=== PATIENT | female | born 1990 | race Caucasian/White ===

== ENCOUNTER 2022-05-20 17:28 | Emergency (ER) | payer OTHER, MEDICAID, SELFPAY ==
[2022-05-20 18:01] VITALS: BP 120/73; PULSE 90; RESP 18; TEMP 36.2; O2SAT 98; BMI 34.1
--- NOTE | 2022-05-20 19:17 | ED.ANIMALBIT ---
HPI - Animal Bite General Chief Complaint: Animal Bite Stated Complaint: DOG BITE LEFT ARM Time Seen by Provider: 05/20/22 18:58 Source: patient Mode of arrival: Ambulatory History of Present Illness HPI narrative: 31-year-old female who is here for evaluation of a laceration to her left arm that was caused by a dog bite. This was a friend's dog that is up-to-date on its immunizations. Patient is up-to-date on immunizations. Related Data Home Medications Medication Instructions Recorded Confirmed vitamin-ferrous fumarate 1 cap PO QDAY ##0 01/28/17 65 mg iron-folic acid 1 mg capsule (Mynatal) Allergies Allergy/AdvReac Type Severity Reaction Status Date / Time No Known Drug Allergies Allergy Verified 05/20/22 20:28 Review of Systems Musculoskeletal Musculoskeletal: Reports system reviewed and no additional complaints, except as documented Integumentary/Breasts Skin/Breast: Reports system reviewed and no additional complaints, except as documented Neurologic Neurologic: Reports system reviewed and no additional complaints, except as documented Hematologic/Lymphatic On Anticoagulants: No Patient History Social History Smoking Status: Never smoker Smoking Status: Never smoker Substance Use Type: does not use Exam Initial Vital Signs Initial Vital Signs: Vital Signs Temperature 97.2 F L 05/20/22 18:01 Pulse Rate 90 05/20/22 18:01 Respiratory Rate 18 05/20/22 18:01 Blood Pressure 120/73 05/20/22 18:01 Pulse Oximetry 98 05/20/22 18:01 Oxygen Delivery Method 05/20/22 18:01 Const General: cooperative HENMT Head: normal to inspection Skin Other: 4 cm laceration to the dorsum of the left forearm the proximal 1/3. Neuro Sensory Exam: no sensory deficits noted Extrem Other: Full range of motion left elbow Procedures Laceration Repair Laceration 1: Site: upper extremity Side (If applicable): left Size (cm): 4 Description: linear Depth: simple, single layer Local Anesthetic: lidocaine 1% and with epi Amount of anesthesia used (mL): 5 Pre-repair: wound explored, irrigated extensively and deep structures intact Skin layer closed with: nylon Skin layer suture size: 5-0 Number of sutures: 3 Course Orders Ordered: Discontinued Medications Bacitracin (Bacitracin Oint 0.9 Gm Pckt) 1 applic TOP NOW ONE Stop: 05/20/22 20:13 Last Admin: 05/20/22 20:28 Dose: 1 applic Documented By: JUVENTINO Lidocaine/Epinephrine (Lidocaine 2% W/Epi Inj) 20 ml INJ INTRA-OP ONE Stop: 05/20/22 19:28 Last Admin: 05/20/22 19:55 Dose: 20 ml Documented By: JUVENTINO Vital Signs Vital signs: Vital Signs - 8 hr 05/20/22 20:34 Pulse Rate 78 Respiratory Rate 17 Blood Pressure 128/67 Pulse Oximetry 98 Oxygen Delivery Method Room Air MDM - Animal Bite MDM Narrative Medical decision making narrative: Wound was clean and clear of any foreign bodies. It did rate quite a bit and I felt that despite the fact that it was a dog bite loosely closing with stitches would be appropriate. This was done as described above. Will hold on any antibiotics. Patient was given care instructions and return precautions. She expressed understanding and agreement. Discharge Plan Departure Patient Disposition: Home Clinical Impression: Dog bite, Laceration Instructions: DI for Laceration Repair Activity Restrictions/Additional Instructions: The stitches do need to be removed in 7-10 days. You can go to the walk-in clinic or your primary doctor for this. Be sure to put topical antibiotic over the area. You can shower like normal and cover with a bandage. Return to the emergency department for any new symptoms. Prescriptions: No Action vit-iron fum-folic ac [Mynatal] 1 EACH capsule 1 cap PO QDAY Qty: 0 Referrals: Sudha Wong ARNP [Primary Care Provider] - Visit Report Forms: Patient Portal/API
[2022-05-20] MEDS: LIDOCAINE 2% W/EPI INJ 20 ML INJ (19:55)
[2022-05-20] MEDS: BACITRACIN OINT 0.9 GM PCKT 1 APPLIC TOP (20:28)
[2022-05-20 20:34] VITALS: BP 128/67; PULSE 78; RESP 17; O2SAT 98
== END 2022-05-20 20:35 | disposition home or self-care (01) ==
PROVIDERS: Emergency Provider Emergency Medicine; PCP Nurse Practitioner Gerontology
DX: S51.812A Laceration without foreign body of left forearm, initial encounter (principal); W54.0XXA Bitten by dog, initial encounter
CPT/HCPCS: 12002; 99282; 99283